=== PATIENT | male | born 1990 | race American Indian/Alaskan Native ===

== ENCOUNTER 2016-12-06 21:39 | Emergency (ER) | payer OTHER ==
[2016-12-06] MEDS ORDERED: DUONEB 0.5 MG-3 MG/3 ML SOLN IH ONE ×4 (21:53→23:57)
[2016-12-06] MEDS ORDERED: DELTASONE PO ONE (23:00)
[2016-12-06] MEDS ORDERED: MAGNESIUM SULFATE 2GM/50ML 2 GM/50 ML BAG IV ONE (23:57)
--- NOTE | 2016-12-07 00:05 | Emergency Department Report ---
ED Asthma HPI - General Chief Complaint: Adult Asthma Stated Complaint: ASTHMA, DIFFICULTY IN BREATHING Time Seen by Provider: 12/06/16 23:00 Source: patient Mode of arrival: Ambulatory Limitations: No Limitations - History of Present Illness Initial Comments: 26-year-old male past medical history asthma history of intubations last hospitalized a year ago for asthma presents with complaint of shortness of breath. Patient states he has been wheezing since yesterday ran out of his albuterol inhaler and is out of town and so has not had access to his nebulizer is currently visiting [place]. On exam no audible wheezing or stridor patient does not appear to be in acute distress sitting calmly in examination room. States he feels mildly short of breath and was wheezing earlier today. Denies any cough no fever no chills. States his baseline peak flow is 300 L/m. Complaint: shortness of breath, wheezing Onset/Timin -: days(s) Asthma History: history of frequent attac, history of prior ED visit, previously intubated Severity: moderate Context: ran out of meds Associated Symptoms: none Treatments Prior to Arrival: inhaled bronchodilator - Related Data Current Asthma Therapy: inhaled bronchodilator Baseline Peak Flow (L/min): 300 Previous Rx's Medication Instructions Recorded Last Taken Type ALBUTEROL Inhaler [ProAir HFA 1 puff IH Q4H PRN #1 inha 12/07/16 Unknown Rx Inhaler] predniSONE [Deltasone] 40 mg PO QDAY #10 tab 12/07/16 Unknown Rx Allergies Allergy/AdvReac Type Severity Reaction Status Date / Time No Known Allergies Allergy Unverified 12/06/16 21:54 ED Review of Systems ROS: Stated complaint: ASTHMA, DIFFICULTY IN BREATHING Other details as noted in HPI Constitutional: denies: chills, fever Eyes: denies: eye pain, eye discharge, vision change ENT: denies: ear pain, throat pain Respiratory: shortness of breath, wheezing. denies: cough Cardiovascular: denies: chest pain, palpitations Endocrine: no symptoms reported Gastrointestinal: denies: abdominal pain, nausea, diarrhea Genitourinary: denies: urgency, dysuria Musculoskeletal: denies: back pain, joint swelling, arthralgia Skin: denies: rash, lesions Neurological: denies: headache, weakness, paresthesias Psychiatric: denies: anxiety, depression Hematological/Lymphatic: denies: easy bleeding, easy bruising ED Past Medical Hx - Past Medical History Previous Medical History?: Yes Hx Asthma: Yes - Social History Smoking Status: Unknown if ever smoked - Medications Home Medications: Home Medications Medication Instructions Recorded Confirmed Last Taken Type ALBUTEROL Inhaler [ProAir HFA 1 puff IH Q4H PRN #1 inha 12/07/16 Unknown Rx Inhaler] predniSONE [Deltasone] 40 mg PO QDAY #10 tab 12/07/16 Unknown Rx ED Physical Exam - General Limitations: No Limitations General appearance: alert, in no apparent distress - Head Head exam: Present: atraumatic, normocephalic - Eye Eye exam: Present: normal appearance, PERRL, EOMI - ENT ENT exam: Present: mucous membranes moist - Neck Neck exam: Present: normal inspection, full ROM - Respiratory Respiratory exam: Present: normal lung sounds bilaterally, wheezes (very mild wheezing). Absent: respiratory distress - Cardiovascular Cardiovascular Exam: Present: regular rate, normal rhythm. Absent: systolic murmur, diastolic murmur, rubs, gallop - GI/Abdominal GI/Abdominal exam: Present: soft, normal bowel sounds - Rectal Rectal exam: Present: deferred - Extremities Exam Extremities exam: Present: normal inspection - Back Exam Back exam: Present: normal inspection - Neurological Exam Neurological exam: Present: alert, oriented X3 - Psychiatric Psychiatric exam: Present: normal affect, normal mood - Skin Skin exam: Present: warm, dry, intact, normal color. Absent: rash ED Course Vital Signs 12/06/16 22:02 Temperature 98.0 F Pulse Rate 93 H Respiratory 18 Rate Blood Pressure 129/88 O2 Sat by Pulse 100 Oximetry ED Medical Decision Making - Medical Decision Making A/P: Asthma exacerbation him a reactive airway disease 1-patient feels moderate to significant relief with 3 nebulizer treatments and steroids, is able to ambulate oxygen saturation is 100% on room air after ambulating around the ED no overt signs of respiratory distress and no wheezing no stridor no retractions 2-5 day course prednisone refill on albuterol 3-patient states he will follow-up with his primary care doctor when he returns home 4-I advised patient to return to the ED if he experiences significant shortness of breath or persistent wheezing Critical care attestation.: If time is entered above; I have spent that time in minutes in the direct care of this critically ill patient, excluding procedure time. ED Disposition Clinical Impression: Reactive airway disease with acute exacerbation Disposition: DISCHARGED TO HOME OR SELFCARE Is pt being admited?: No Does the pt Need Aspirin: No Condition: Stable Instructions: Asthma (ED) Prescriptions: ALBUTEROL Inhaler [ProAir HFA Inhaler] 1 puff IH Q4H PRN #1 inha PRN Reason: Wheezing predniSONE [Deltasone] 40 mg PO QDAY #10 tab Forms: Accompanied Note, Work/School Release Form(ED) Time of Disposition: 01:55
[2016-12-07 02:22] VITALS: BP 124/86
== END 2016-12-07 02:20 | disposition home or self-care (01) ==
LOC: ED 21:39
DX: J45.901 Unspecified asthma with (acute) exacerbation (principal)
CPT/HCPCS: 94640; 96365; 96375; 99283; J2920; J3475; J7512